=== PATIENT | male | born 1995 | race African-American/Black ===

== ENCOUNTER 2024-07-31 18:25 | Emergency (ER) | payer OTHER, SELFPAY ==
[2024-07-31 19:19] VITALS: BP 131/84
[2024-07-31] MEDS: ADACEL 0.5 ML IM (20:05)
--- NOTE | 2024-07-31 21:01 | ED.GENMED ---
History of Present Illness
General
Chief Complaint: Skin Surface Trauma
Source: patient
Exam Limitations: none
Time Seen by Provider: 07/31/24 19:39
Nursing documentation reviewed up to this point in time: agreed with
History of Present Illness
History of Present Illness:
Patient presents ED secondary to left eyelid laceration, which occurred shortly prior to arrival, when patient was pushing the gate with his elbow, when attached zip tie cut his left eyelid. Denies any other injuries. Denies loss of vision.
Denies dizziness. Denies blurred vision. Patient unsure of his last tetanus vaccination.
Review of Systems
Review of Systems
Allergies reviewed?: Yes
All Other Systems: ROS reviewed and negative except as documented in HPI and ROS
Constitutional: Reports no symptoms
Musculoskeletal: Reports no symptoms
Skin: Reports other (eyelid laceration)
Neurological: Reports no symptoms
Phy Exam
Physical Exam
Physical Exam:
Physical Exam
General: no apparent distress, not acutely ill. afebrile
Head: nc/at. eomi. an approx 2cm superficial horizontal laceration above left eye, without active bleeding
Neck: supple.
Neuro: alert and oriented x 3. no focal neurological deficits
Skin: no rash
Psychiatric: well kept. interactive and cooperative
Extremities: no edema. no calf tenderness.
Course
Orders/Labs/Results
Orders:
Orders
07/31/24 19:55
Tetanus/Diphth/Acelpertussis [Adacel] 0.5 ml IM .ONCE ONE
Vital Signs
Initial and Last Documented VS:
Initial Vital Signs
Temp Pulse Resp BP Pulse Ox
98.1 F 66 18 131/84 97
07/31/24 19:19 07/31/24 19:19 07/31/24 19:19 07/31/24 19:19 07/31/24 19:19
Last Documented Vital Signs
Temp Pulse Resp BP Pulse Ox
98.1 F 66 18 131/84 97
07/31/24 19:19 07/31/24 19:19 07/31/24 19:19 07/31/24 19:19 07/31/24 19:19
Procedures
Laceration Closure
Left Middle Eye lid:
Status of Wound: clean
Size of Wound in cm: 3
Description of Wound Edges: sharp
Preparation: cleaned with SurClens
Revision/Debridement: routine- no revision
Type of Closure: single layer closure and Dermabond-skin glue
MDM/Problems Addressed
MDM/Problems Addressed:
Wound well-approximated with application of Dermabond. Vision remains intact. Tetanus vaccination provided. Patient advised to follow-up for reevaluation, to ensure that laceration stays closed and there is no development of secondary infection.
*Critical Care Note
Total Time (30-74mins, 75-104mins- exclusive of procedures): Not Applicable
ED Attending Note
-
Portions of this chart may have been created with voice recognition software.� Occasional wrong word or��sound alike� substitutions may have occurred due to the inherent limitations of voice recognition software.
Discharge Plan
Departure
Patient Disposition: Home (Routine Discharge)
Date of Disposition: 07/31/24
Time of Disposition: 21:04
Patient with high blood pressure during this ER visit?: Yes
Discharge Problem:
Eyelid laceration
Instructions: Laceration Repair With Glue (DC)
Referrals:
[facility] [Family Provider] -
Activity Restrictions/Additional Instructions:
As discussed, please follow-up with your primary care physician with any further concerns.
Interventions
Interventions:
*Risk Screen - Suicide Last Done: 07/31/24 18:29
*General Assessment Last Done: 07/31/24 18:29
*Neglect/Abuse Screening Last Done: 07/31/24 18:29
ED- Fall Risk Assessment Last Done: 07/31/24 21:08
*ED COVID-19 Vaccine History Last Done: 07/31/24 18:29
*Nursing Disposition Last Done: 07/31/24 21:08
ED-Skin Assessment Last Done: 07/31/24 19:01
Discharge Date and Time
Discharge Date/Time: 07/31/24 21:09
Print Language: SAO TOMEAN
== END 2024-07-31 21:09 | disposition home or self-care (01) ==
LOC: EMR 18:25
PROVIDERS: EMERGENCY PHYSICIAN Emergency Medicine
DX: S01.112A Laceration without foreign body of left eyelid and periocular area, initial encounter (principal); X58.XXXA Exposure to other specified factors, initial encounter; Z23 Encounter for immunization
CPT/HCPCS: 99282; 12011; 90471; 90715